=== PATIENT | female | born 1985 | race American Indian/Alaskan Native ===

== ENCOUNTER 2017-12-31 16:24 | Emergency (ER) | payer MEDICAID ==
[2017-12-31 16:30] VITALS: BP 109/68; PULSE 68; RESP 18; TEMP 98; O2SAT 100
--- NOTE | 2017-12-31 17:21 | C.PDOC ---
Time Seen by Provider: 12/31/17 17:08 Chief Complaint (Nursing): Dental Pain History Per: Patient Onset/Duration Of Symptoms: Days (4) Current Symptoms Are (Timing): Still Present Severity: Moderate Dental/Oral: 1 - Cavity. Pain. Quality: Positive for: "Pain" Additional History Per: Prior Records Past Medical History Reviewed: Historical Data, Nursing Documentation, Vital Signs Vital Signs: Last Vital Signs Temp 98.0 F 12/31/17 16:28 Pulse 68 12/31/17 16:28 Resp 18 12/31/17 16:28 BP 109/68 12/31/17 16:28 Pulse Ox 100 12/31/17 16:28 - Medical History PMH: No Chronic Diseases Surgical History: No Surg Hx Family History: States: Unknown Family Hx - Social History Hx Tobacco Use: No Hx Alcohol Use: Yes Hx Substance Use: No - Immunization History Hx Tetanus Toxoid Vaccination: No Hx Influenza Vaccination: No Hx Pneumococcal Vaccination: No Review Of Systems Except As Marked, All Systems Reviewed And Found Negative. Constitutional: Negative for: Fever, Weakness ENT: Positive for: Mouth Pain. Negative for: Throat Pain Cardiovascular: Negative for: Chest Pain Respiratory: Negative for: Shortness of Breath Gastrointestinal: Negative for: Vomiting, Abdominal Pain Musculoskeletal: Negative for: Neck Pain Skin: Negative for: Rash Neurological: Negative for: Weakness, Numbness Physical Exam - Physical Exam Appears: Non-toxic, No Acute Distress Skin: Normal Color, Warm, Dry, No Rash Head: Atraumatic, Normacephalic Eye(s): bilateral: Normal Inspection, PERRL, EOMI Oral Mucosa: Moist, No Drooling, No Trismus Tongue: Normal Appearing Lips: Normal Appearing Teeth: Caries (right lower molar), Tender To Palpation (right lower molar) Gingiva: Tender (right lower), No Abscess Throat: Normal Neck: Normal ROM, Supple Lymphatic: No Adenopathy Extremity: Normal ROM Neurological/Psych: Oriented x3, Normal Speech, Normal Motor, Normal Sensation ED Course And Treatment O2 Sat by Pulse Oximetry: 100 Pulse Ox Interpretation: Normal Disposition Counseled Patient/Family Regarding: Diagnosis, Need For Followup, Rx Given - Disposition Referrals: Pedro Zuluaga [facility]is[facility] [Outside] Disposition: HOME/ ROUTINE Disposition Time: 17:22 Condition: STABLE Additional Instructions: Follow up with a Dentist as soon as possible within 1 week for further evaluation and treatment. Return to the ER if you develop fever, redness, swelling, pus drainage, worsening of symptoms or if you have any other concerns. Prescriptions: Naproxen [Naprosyn] 1 tab PO BID PRN #20 tab PRN Reason: Pain Penicillin V Potassium 500 mg PO QID #28 tablet Instructions: Dental Pain (DC) - Clinical Impression Clinical Impression: Toothache, Dental caries
== END 2017-12-31 17:44 | disposition home or self-care (01) ==
LOC: C.ER 16:24
DX: K02.9 Dental caries, unspecified (principal)